=== PATIENT | male | born 1960 | race Caucasian/White ===

== ENCOUNTER 2017-09-15 07:15 | Outpatient (CLI) | payer OTHER | END 2017-09-15 07:33 | disposition home or self-care (01) | LOC: TOM 07:15 | DX: R16.0 Hepatomegaly, not elsewhere classified (principal); M47.817 Spondylosis without myelopathy or radiculopathy, lumbosacral region; M47.814 Spondylosis without myelopathy or radiculopathy, thoracic region ==